=== PATIENT | female | born 1965 | race Caucasian/White ===

== ENCOUNTER 2018-09-25 00:49 | Emergency (ER) | payer OTHER ==
[~2018-09-25] VITALS: Ht 175.3 cm; Wt 90.7 kg
[~2018-09-25 00:49] MED LIST: LISI2.5T47 PO
[2018-09-25] MEDS ORDERED: ONDANSETRON HCL 4 MG/2 ML VIAL IM ONE (01:00)
[2018-09-25] MEDS ORDERED: MORPHINE SULFATE 4 MG/ML SYR/VIAL IM ONE (01:00)
[2018-09-25 01:03] VITALS: BP 131/89
== END 2018-09-25 01:52 | disposition home or self-care (01) ==
LOC: EEVIPCON 00:51 → ER 00:51
DX: S93.401A Sprain of unspecified ligament of right ankle, initial encounter (principal); Z90.710 Acquired absence of both cervix and uterus; W19.XXXA Unspecified fall, initial encounter; Y93.89 Activity, other specified; Y92.89 Other specified places as the place of occurrence of the external cause; Y99.8 Other external cause status
CPT/HCPCS: 73610; 96372; 99283; J2270; J2405

== ENCOUNTER → 2020-01-30 | Emergency (ER) | payer OTHER ==
[~2020-01-30] VITALS: Ht 180.3 cm; Wt 77.1 kg
[~2020-01-30] MED LIST changes: +ATROPINE SULF 1 MG/10ml SYR IV ONE; +ATROPINE SULFATE 1 MG/1 ML VIAL ONE; +DOPamine 1600MCG/ML D5W 250 ML IV ONE; +HYDROmorphone HCL 2 MG/ML VL IM ONE; +HYDROmorphone HCL 2 MG/ML VL IV ONE; +ONDANSETRON HCL 4 MG/2 ML VIAL IM ONE; +POTASSIUM EFFERVESENT TAB 25 MEQ PO ONE; +SILVER SULFADIAZINE 1 % TOPICAL CREAM 50GM TOP ONE; +SODIUM CHLORIDE 0.9% 1,000 ML IV ONE; +cefTRIAXone 1GM/50ML D5W 50 ML IV ONE; +cefTRIAXone W LIDOCAINE 1 GM IM IM ONE
[2020-01-30 08:56] LABS: Basophils # (auto) 0 10 ^3/uL (0-0.2); Basophils % (auto) 0.7 % (0.0-2.0); Eosinophils # (auto) 0.1 10 ^3/uL (0-0.8); Hematocrit 37.2 % (36.0-46.0); Hemoglobin 12.9 g/dL (12.2-16.2); Lymphocytes # (auto) 0.9 10 ^3/uL (0.4-5.4); Lymphocytes % (auto) 20.5 % (10.0-50.0); Mean Corpuscular Hgb Conc. 34.7 g/dL (32.0-36.0); Mean Corpuscular Volume 89.4 fL (80.0-100.0); Monocytes # (auto) 0.4 10 ^3/uL (0-1.3); Monocytes % (auto) 9.2 % (0.0-12.0); Neutrophils # (auto) 3.1 10 ^3/uL (1.6-8.6); Neutrophils % (auto) 67.6 % (37.0-80.0); Platelet Count (auto) 150 10^3/uL (140-450); Red Blood Cells 4.16 10^6/uL (4.0-5.20); Red Cell Distribution Width 13.4 % (11.8-14.3); White Blood Cell 4.6 10^3/uL (4.4-10.8)
[2020-01-30 09:09] LABS: Albumin 2.9 g/dL (3.4-5.0); Anion Gap 8 (5-15); BUN/Creatinine Ratio 20.3; Blood Urea Nitrogen 14 mg/dL (7-18); Calcium 7.4 mg/dL (8.5-10.1); Carbon Dioxide 21 mmol/L (21-32); Chloride 110 mmol/L (98-107); GFR African American 115 mL/min; GFR Non-African American 95 mL/min; Glucose 116 mg/dL (74-106); Potassium 3.1 mmol/L (3.5-5.1); Sodium 139 mmol/L (136-145)
[2020-01-30 09:14] LABS: Alanine Aminotransferase 25 U/L (13-56); Alkaline Phosphatase 55 U/L (45-117); Aspartate Aminotransferase 16 U/L (15-37); Bilirubin, Total 0.4 mg/dL (0.2-1.0); Total Protein 5.5 g/dL (6.4-8.2)
[2020-01-30 09:42] VITALS: BP 141/74
== END | disposition home or self-care (01) ==
LOC: ER 07:41 → EEVIPCON 07:41
DX: T23.201A Burn of second degree of right hand, unspecified site, initial encounter (principal); E87.6 Hypokalemia; R55 Syncope and collapse; X15.2XXA Contact with hotplate, initial encounter; Y93.89 Activity, other specified; Y92.89 Other specified places as the place of occurrence of the external cause; Y99.8 Other external cause status
CPT/HCPCS: 16000; 36415; 70450; 80053; 84484; 85025; 93005; 93306; 96365; 96368; 96372; 96375; 99285; J0461; J0696; J1170; J1265; J2405; J7030

== ENCOUNTER → 2020-05-07 | Outpatient (CLI) | payer OTHER ==
[~2020-05-07] MED LIST changes: -ATROPINE SULF 1 MG/10ml SYR IV ONE; -ATROPINE SULFATE 1 MG/1 ML VIAL ONE; -DOPamine 1600MCG/ML D5W 250 ML IV ONE; -HYDROmorphone HCL 2 MG/ML VL IM ONE; -HYDROmorphone HCL 2 MG/ML VL IV ONE; -ONDANSETRON HCL 4 MG/2 ML VIAL IM ONE; -POTASSIUM EFFERVESENT TAB 25 MEQ PO ONE; -SILVER SULFADIAZINE 1 % TOPICAL CREAM 50GM TOP ONE; -SODIUM CHLORIDE 0.9% 1,000 ML IV ONE; -cefTRIAXone 1GM/50ML D5W 50 ML IV ONE; -cefTRIAXone W LIDOCAINE 1 GM IM IM ONE
== END | disposition home or self-care (01) ==
LOC: LAB 17:01
PROVIDERS: ATTEND Physician Assistant
DX: Z20.828 Contact with and (suspected) exposure to other viral communicable diseases (principal)

== ENCOUNTER 2020-10-02 15:02 | Outpatient (CLI) | payer OTHER ==
[2020-10-02] VITALS (7 sets, daily range): BP systolic 130–169; BP diastolic 81–98
[~2020-10-02] VITALS: Ht 175.3 cm; Wt 90.7 kg
[2020-10-02] MEDS ORDERED: BAMLANIVIMAB 700MG/200ML 200 ML IV ONE (15:45)
== END 2020-10-02 18:40 | disposition home or self-care (01) ==
LOC: ER 15:02
PROVIDERS: ATTEND Internal Medicine
DX: Z51.81 Encounter for therapeutic drug level monitoring (principal); I10 Essential (primary) hypertension; Z68.29 Body mass index [BMI] 29.0-29.9, adult; Z98.890 Other specified postprocedural states; Z79.899 Other long term (current) drug therapy

== ENCOUNTER → 2020-10-02 | Outpatient (CLI) | payer OTHER | END | disposition home or self-care (01) | LOC: LAB 12:53 | PROVIDERS: ATTEND Internal Medicine | DX: U07.1 COVID-19 (principal) | CPT/HCPCS: 36415; 87426 ==

== ENCOUNTER 2020-10-08 11:18 | Emergency (ER) | payer OTHER ==
[~2020-10-08] VITALS: Ht 175.3 cm; Wt 90.7 kg
[2020-10-08 13:02] VITALS: BP 144/87
[2020-10-08] MEDS ORDERED: SODIUM CHLORIDE 0.9% 1,000 ML IV ONE (13:15)
[2020-10-08 13:23] LABS: Basophils # (auto) 0.1 10 ^3/uL (0-0.2); Basophils % (auto) 0.7 % (0.0-2.0); Eosinophils # (auto) 0.1 10 ^3/uL (0-0.8); Eosinophils % (auto) 1.4 % (0.0-7.0); Hematocrit 47.3 % (36.0-46.0); Hemoglobin 16.4 g/dL (12.2-16.2); Lymphocytes % (auto) 25.2 % (10.0-50.0); Mean Corpuscular Hgb Conc. 34.7 g/dL (32.0-36.0); Mean Corpuscular Volume 89.2 fL (80.0-100.0); Monocytes # (auto) 0.7 10 ^3/uL (0-1.3); Monocytes % (auto) 9.4 % (0.0-12.0); Neutrophils % (auto) 63.3 % (37.0-80.0); Nucleated Red Blood Cells % 0.1 %; Platelet Count (auto) 269 10^3/uL (140-450); Red Cell Distribution Width 12.6 % (11.8-14.3); White Blood Cell 7.8 10^3/uL (4.4-10.8)
[2020-10-08 14:13] LABS: Potassium 3.7 mmol/L (3.5-5.1)
[2020-10-08 14:22] LABS: Albumin 3.5 g/dL (3.4-5.0); BUN/Creatinine Ratio 18.2; Bilirubin, Total 0.4 mg/dL (0.2-1.0); Calcium 8.8 mg/dL (8.5-10.1); Total Protein 7.2 g/dL (6.4-8.2)
[2020-10-08] MEDS ORDERED: traMADol HCL 50 MG TAB PO ONE (16:30)
== END 2020-10-08 18:05 | disposition home or self-care (01) ==
LOC: ER 11:18 → EEVIPCON 11:18 → ER 18:05
DX: U07.1 COVID-19 (principal); J01.90 Acute sinusitis, unspecified
CPT/HCPCS: 36415; 71045; 71250; 80053; 82728; 83615; 85025; 85379; 96360